=== PATIENT | male | born 1950 | race Caucasian/White ===

== ENCOUNTER 2017-12-16 06:12 | Day surgery (SDC) | payer MEDICARE ==
--- NOTE | 2017-12-13 21:50 | HP ---
CC: Dr. Preston Winkler * ADMISSION HISTORY AND PHYSICAL: DATE OF ADMISSION: 12/16/17 ATTENDING SURGEON: Dr. Julio Cesar Bradley * (LESLEE Daley, dictating). CHIEF COMPLAINT: Left inguinal hernia. HISTORY OF PRESENT ILLNESS: This is a 67-year-old generally healthy male, who approximately 5 weeks ago first noted a bulge in the left inguinal area. It had been associated with some mild discomfort particularly related to activity or positioning, though nothing to suggest incarceration or strangulation. He does have baseline BPH, but has not noticed any change in function. He was seen by his PCP and referred for evaluation with Dr. Bradley. He was seen in the office on 11/30/17 at which time, Dr. Bradley noted a moderately large left inguinal hernia. Dr. Bradley has discussed with him the indications for surgery, the risks, benefits, and alternatives as well as the methods for repair. The patient would like to proceed as scheduled with open repair of left inguinal hernia with mesh. PAST MEDICAL HISTORY: BPH, right bundle-branch block (seen and evaluated by Dr. Murillo in 2009 with an echocardiogram at that time, which was normal. He has had a more recent EKG which remains unchanged and he has been symptom free), hyperlipidemia. PAST SURGICAL HISTORY: Previous surgery is limited to dental extractions. CURRENT MEDICATIONS: 1. Flomax 0.4 mg once daily. 2. Atorvastatin 20 mg once daily. 3. Aspirin 325 mg once daily most days. He will hold his aspirin preoperatively as of today, his last dose being 12/12/17. 4. Lovaza 1 g 2 capsules b.i.d. 5. Turmeric Curcumin supplement 2 to 3 tablets once daily (when he remembers; he will hold this between now and surgery). ALLERGIES: Drug allergies, none known. FAMILY HISTORY: Negative for anesthesia problems, bleeding, or clotting disorders. SOCIAL HISTORY: The patient is a retired glass glazier. He is . His accompanies him today. He is a nonsmoker and drinks alcohol occasionally. REVIEW OF SYSTEMS: General: No recent constitutional symptoms or acute illnesses. His weight has been stable. HEENT: No problems reported. Cardiovascular: As noted above right bundle-branch block, unchanged. No history of chest pain, palpitations, hypertension, or heart murmur. Respiratory : No history of asthma, chronic cough, or shortness of breath. GI: No problems reported. Colonoscopy done in 2017 with removal of a tubular adenoma and recommended 5-year followup. : As above. No additions. Musculoskeletal : No problems reported. Endocrine: No diabetes or thyroid dysfunction. PHYSICAL EXAMINATION GENERAL: A well-nourished, well-developed male, in no acute distress. VITAL SIGNS: Height 70 inches, weight 169 pounds, blood pressure 90/58, pulse 66, and respirations 16. HEENT: Pupils equal, round, and reactive. EOMs intact. No conjunctival pallor. Oropharynx, teeth in good repair. No intraoral lesions. NECK: No lymphadenopathy, thyromegaly, or masses. LUNGS: Clear to auscultation. No rales or wheezes. HEART: Somewhat distant heart sounds, but otherwise regular rhythm with no murmur appreciated. ABDOMEN: Soft, nontender to palpation. No palpable masses or organomegaly with the exception of a left groin bulge notable most readily in the standing position. This is soft and reducible. No hernia noted on the right. GENITALIA: Otherwise normal. RECTAL: Not done. BACK: No spinous process or CVA tenderness. EXTREMITIES: No edema. NEUROLOGIC: Grossly intact. SKIN: Warm and dry. No suspicious rashes or lesions noted. IMPRESSION: Left inguinal hernia. PLAN: Open repair of left inguinal hernia with mesh. LESLEE DALEY [id number]/[facility] #: [id number] MTDChristopher
[~2017-12-16 06:12] MED LIST: Buffered Lidocaine 0.9% SYRIN* 5 ML/SYR SYRINGE INTRADERM ONE; Dexamethasone IV* 4 MG/ML 1 ML (4 MG) IV SLOW PU ONE; Famotidine IV* 10 MG/ML 2 ML (20 mg) IV ONE
[2017-12-16] MEDS ORDERED: Dexamethasone IV* 4 MG/ML 1 ML (4 MG) ONE (06:47)
[2017-12-16] MEDS ORDERED: Famotidine IV* 10 MG/ML 2 ML (20 mg) ONE (06:47)
[2017-12-16] MEDS ORDERED: ceFAZolin 2 GM PREMIX (*) 2 GM/50 ML BAG IVPB ONE (06:47)
[2017-12-16] MEDS ORDERED: Lidocaine 2% PF * 5 ML VIAL ONE (07:14)
[2017-12-16] MEDS ORDERED: Midazolam* 1 MG/ML 2 ML VIAL (2 MG) ONE (07:14)
[2017-12-16] MEDS ORDERED: Propofol* 10 MG/ML 20 ML BTL IV PUSH ONE (07:14)
[2017-12-16] MEDS ORDERED: fentaNYL* 50 MCG/ML 2 ML VIAL (100 MCG VIAL) ONE (07:14)
[2017-12-16] MEDS ORDERED: Lidocaine 1% MPF wEPI 200,000* 30 ML SDV ONE (07:15)
[2017-12-16] MEDS ORDERED: Bupivacaine 0.5% PF 10 ML VIAL INJ ONE (07:15)
[2017-12-16] MEDS ORDERED: HYDROcodone/ACETAMIN 5-325 MG* 1 TAB PO PRN (07:24)
[2017-12-16] MEDS ORDERED: Ketorolac INJ* 30 MG/ML 1 ML VIAL IV PRN (07:24)
[2017-12-16] MEDS ORDERED: Naloxone* 0.4 MG/ML 1 ML VIAL IV PRN (07:24)
[2017-12-16] MEDS ORDERED: fentaNYL* 50 MCG/ML 2 ML VIAL (100 MCG VIAL) IV PRN (07:24)
[2017-12-16] MEDS ORDERED: oxyCODONE/Acetamin 5/325 MG* TAB PO PRN (07:24)
[2017-12-16] MEDS ORDERED: Ondansetron INJ* 2 MG/ML VIAL IV PRN (07:24)
[2017-12-16 08:40] VITALS: BP 115/80
--- NOTE | 2017-12-16 13:43 | OP ---
CC: Dr. Julio Cesar Bradley; Dr. Winkler. OPERATIVE REPORT: DATE OF OPERATION: 12/16/17 DATE OF : 46 SURGEON: Julio Cesar Bradley MD ME[employer]ICE TEAM MEMBER: LESLEE Moon ANESTHESIOLOGIST: Dr. Thurman. ANESTHESIA: LMAC anesthesia. PRE-OP DIAGNOSIS: Left inguinal hernia. POST-OP DIAGNOSIS: Left inguinal hernia. OPERATIVE PROCEDURE: Open left inguinal hernia repair with mesh. DESCRIPTION OF PROCEDURE: The patient was supine in the operating room table after adequate intraven ous sedation, compression stocking, Peg Hugger warmer, and intravenous antibiotics. The abdomen was prepped with antiseptic and draped in a sterile fashion. Local infiltrative anesthesia was administ ered. Left inguinal incision was created and approximately 5 to 6 cm incision was created. Dissecti on carried down to the external oblique which was opened in the direction of this fibers. Cord struc tures were encircled with a [place] drain, tented upward, and indirect hernia sac was identified with in the cord structures. It was dissected free and reduced and a cone mesh plug was placed into the in ternal ring, sutured there with 2-0 Vicryl. A second piece of mesh was placed over the inguinal floo r, sutured to the tubercle. Tails were split, brought around the cord structures and tacked down lat erally. External oblique was closed over top with 2-0 Vicryl, Debra with 3-0 Vicryl, skin with 4-0 Prolene followed by a sterile dressing. He tolerated the procedure well and was awakened and brought to Recovery in good condition. No complications, no drains. No pathologic specimens. Sponge and i nstrument counts correct. Estimated blood loss 10 mL. [id number]/[facility] #: [id number]
== END 2017-12-16 10:46 | disposition home or self-care (01) ==
LOC: OR 06:12
PROVIDERS: ATTEND Surgery
DX: K40.90 Unilateral inguinal hernia, without obstruction or gangrene, not specified as recurrent (principal); I45.10 Unspecified right bundle-branch block; E78.5 Hyperlipidemia, unspecified; N40.0 Benign prostatic hyperplasia without lower urinary tract symptoms
CPT/HCPCS: C1781; J0690; J1100; J2001; J2250; J2704; J3010

== ENCOUNTER 2019-02-19 15:14 | Emergency (ER) | payer MEDICARE ==
[2019-02-19] MEDS ORDERED: Famotidine TAB* 20 MG PO ONE (15:22)
[2019-02-19] MEDS ORDERED: diPHENhydraMINE PO* 50 MG PO ONE (15:22)
[2019-02-19] MEDS ORDERED: predniSONE TAB* 20 MG PO ONE (15:23)
[2019-02-19 15:24] VITALS: BP 130/81
--- NOTE | 2019-02-19 15:28 | UC ---
Bite Injury/Animal HPI - HPI Summary HPI Summary: 68-year-old male comes in with a chief complaint of multiple bee stings. Just prior to arrival patient was stung multiple times on the head right neck left shoulder. Patient does feel little sweaty. No prior history of allergic reaction to bee stings. Patient reports he's not been stung this many times in the past. Denies any shortness of breath or difficulty swallowing. - History of Current Complaint Chief Complaint: UCSkin Stated Complaint: BEE STING Time Seen by Provider: 02/19/19 15:18 Pain Intensity: 0 - Allergies/Home Medications Allergies/Adverse Reactions: Allergies Allergy/AdvReac Type Severity Reaction Status Date / Time No Known Allergies Allergy Verified 02/19/19 15:24 PMH/Surg Hx/FS Hx/Imm Hx Previously Healthy: Yes - BPH Endocrine History: Dyslipidemia - Surgical History Surgical History: Yes Surgery Procedure, Year, and Place: hernia 2018 - Family History Known Family History: Positive: Non-Contributory - Social History Alcohol Use: Rare Substance Use Type: None Smoking Status (MU): Never Smoked Tobacco Review of Systems All Other Systems Reviewed And Are Negative: Yes Constitutional: Positive: Other - SEE HPI Skin: Positive: Other - SEE HPI Eyes: Positive: Negative ENT: Positive: Negative Respiratory: Positive: Negative Cardiovascular: Positive: Negative Gastrointestinal: Positive: Negative Motor: Positive: Negative Neurovascular: Positive: Negative Musculoskeletal: Positive: Negative Neurological: Positive: Negative Psychological: Positive: Negative Is Patient Immunocompromised?: No Physical Exam Triage Information Reviewed: Yes Appearance: No Pain Distress, Well-Nourished, Other: - Mildly diaphoretic. Awake alert appropriate normal voice no difficulty with breathing apparent on examination. Vital Signs: Initial Vital Signs Temp 96.7 F 02/19/19 15:19 Pulse 91 02/19/19 15:19 Resp 19 02/19/19 15:19 BP 130/81 02/19/19 15:19 Pulse Ox 99 02/19/19 15:19 Vital Signs Reviewed: Yes Eye Exam: Normal Eyes: Positive: Conjunctiva Clear ENT: Positive: Pharynx normal - Oral pharynx is open. Voice is normal. Neck: Positive: Supple Respiratory: Positive: Lungs clear, Normal breath sounds, No respiratory distress Cardiovascular: Positive: RRR Musculoskeletal: Positive: Strength Intact, ROM Intact Neurological: Positive: Alert, Muscle Tone Normal Psychological: Positive: Age Appropriate Behavior Skin: Positive: Other - Patient has multiple bee stings on his arms right side of his neck left shoulder and on top of his head. A total of 4 stingers were removed from the various sites. Bite Injury Course/Dx - Course Course Of Treatment: Patient was given Benadryl 50 mg by mouth, Pepcid 40 mg by mouth and prednisone 60 mg by mouth in clinic. Patient did not have any shortness of breath difficulty swallowing. No generalized allergic reaction in the clinic. - Differential Dx/Diagnosis Provider Diagnosis: Bee sting Discharge ED - Sign-Out/Discharge Documenting (check all that apply): Patient Departure All imaging exams completed and their final reports reviewed: No Studies - Discharge Plan Condition: Stable Disposition: HOME Prescriptions: Famotidine TAB* [Pepcid 20 MG TAB*] 20 mg PO BID PRN #8 tab PRN Reason: Allergy Symptoms predniSONE TAB* [Deltasone 20 MG TAB*] 40 mg PO DAILY PRN #8 tab PRN Reason: Allergy Symptoms Patient Education Materials: Insect Bite or Sting (ED) Referrals: Faye Hough MD [Primary Care Provider] - Additional Instructions: FOLLOW UP WITH YOUR DOCTOR IF NOT COMPLETELY IMPROVED. GO TO THE EMERGENCY DEPARTMENT IF YOUR CONDITION WORSENS; SHORTNESS OF BREATH, DIFFICULTY SWALLOWING, YOU FEEL ILL OR ANY QUESTIONS OR CONCERNS. - Billing Disposition and Condition Condition: STABLE Disposition: Home
== END 2019-02-19 16:45 | disposition home or self-care (01) ==
LOC: UCEAST 15:14
DX: T63.441A Toxic effect of venom of bees, accidental (unintentional), initial encounter (principal); Y92.9 Unspecified place or not applicable; E78.5 Hyperlipidemia, unspecified
CPT/HCPCS: 99212; A9270-GY; G0463; J7512

== ENCOUNTER 2019-07-17 14:57 | Emergency (ER) | payer MEDICARE ==
[2019-07-17 16:01] VITALS: BP 121/66
--- NOTE | 2019-07-17 17:15 | UC ---
Ear Complaint HPI - HPI Summary HPI Summary: 69-year-old male presents with complaints of cerumen impaction to his right ear. States he was supposed to have a hearing test today to be evaluated for hearing aid in the joist setter told him that the right ear canal was impacted with cerumen. Denies fever, chills, ear pain, ear drainage, vertigo, tinnitus, or URI symptoms. - History of Current Complaint Chief Complaint: UCEar Stated Complaint: PLUGGED EAR Time Seen by Provider: 07/17/19 16:51 Hx Obtained From: Patient Pain Intensity: 0 - Allergies/Home Medications Allergies/Adverse Reactions: Allergies Allergy/AdvReac Type Severity Reaction Status Date / Time No Known Allergies Allergy Verified 07/17/19 16:01 PMH/Surg Hx/FS Hx/Imm Hx Endocrine History: Dyslipidemia GI/ History: Other - BPH - Surgical History Surgical History: Yes Surgery Procedure, Year, and Place: hernia 2018 - Family History Known Family History: Positive: Non-Contributory - Social History Occupation: Employed Full-time Lives: With Family Alcohol Use: Rare Substance Use Type: None Smoking Status (MU): Never Smoked Tobacco Review of Systems All Other Systems Reviewed And Are Negative: Yes Constitutional: Negative: Fever, Chills Eyes: Negative: Drainage, Eye Redness ENT: Positive: Other - See HPI. Negative: Sore Throat, Ear Ache, Nasal Discharge, Sinus Congestion, Sinus Pain/Tenderness Respiratory: Positive: Negative Cardiovascular: Positive: Negative Gastrointestinal: Positive: Negative Genitourinary: Positive: Negative Musculoskeletal: Positive: Negative Neurological: Positive: Negative Is Patient Immunocompromised?: No Physical Exam - Summary Physical Exam Summary: GENERAL APPEARANCE: Well developed, well nourished, alert and cooperative, and appears to be in no acute distress. EYES: Conjunctiva clear. No drainage. EARS: Left external auditory canal clear, left TM opaque with good cone of light. Right external auditory canal with cerumen impaction. TM no visualized. NOSE: No nasal discharge. THROAT: Pharynx normal. No tonsilar inflammation, swelling, exudate, or lesions. Uvula midline. NECK: Neck supple, non-tender without lymphadenopathy. CARDIAC: Normal S1 and S2. No S3, S4 or murmurs. Rhythm is regular. There is no peripheral edema, cyanosis or pallor. Extremities are warm and well perfused. Capillary refill is less than 2 seconds. Peripheral pulses intact. LUNGS: Clear to auscultation without rales, rhonchi, wheezing or diminished breath sounds. ABDOMEN: Positive bowel sounds. Soft, nondistended, nontender. No guarding or rebound. No masses or hepatosplenomegally. MUSKULOSKELETAL: ROM intact to all extremities. No joint erythema or tenderness. Normal muscular development. Normal gait. SKIN: Skin normal color, texture and turgor with no lesions or eruptions. Triage Information Reviewed: Yes Vital Signs: Initial Vital Signs Temp 97.4 F 07/17/19 15:58 Pulse 55 07/17/19 15:58 Resp 16 07/17/19 15:58 BP 121/66 07/17/19 15:58 Pulse Ox 100 07/17/19 15:58 Vital Signs Reviewed: Yes Ear Complaint Course/Dx - Course Course Of Treatment: 69-year-old male presents with complaints of cerumen impaction to his right ear. States he was supposed to have a hearing test today to be evaluated for hearing aid in the joist setter told him that the right ear canal was impacted with cerumen. Denies fever, chills, ear pain, ear drainage, vertigo, tinnitus, or URI symptoms. Afebrile. Vital signs stable. Patient's left external auditory canal was clear, left TM opaque with good cone of light, the right external auditory canal with cerumen impaction, right TM not visualized, and otherwise unremarkable exam. These cerumen impaction in the right external auditory canal was irrigated by the RN and a large amount of hard cerumen was removed. Post irrigation a small amount of cerumen remained in the base of the right external auditory canal however TM was visualized, intact, opaque, with a good cone of light. Patient is to follow-up with his primary care provider as needed. Anticipatory guidance and warning symptoms were reviewed with the patient. Verbalizes understanding and agrees with plan of care. - Differential Dx/Diagnosis Differential Diagnosis/HQI/PQRI: Cerumen Impaction, Otitis Externa, Otitis Media Provider Diagnosis: Impacted cerumen, right ear Discharge ED - Sign-Out/Discharge Documenting (check all that apply): Patient Departure All imaging exams completed and their final reports reviewed: No Studies - Discharge Plan Condition: Stable Disposition: HOME Patient Education Materials: Cerumen Impaction (ED) Referrals: Amador Murillo NP [Primary Care Provider] - If Needed Additional Instructions: The ear wax in your right ear was successfully removed. Follow up with you primary care provider as needed. Seek immediate medical attention if you develop fever greater than 100.5 F, have severe ear pain, sudden hearing loss, drainage or blood from the ear, persistent dizziness, or any worsening of symptoms. - Billing Disposition and Condition Condition: STABLE Disposition: Home
== END 2019-07-17 17:55 | disposition home or self-care (01) ==
LOC: UCEAST 14:57
DX: H61.21 Impacted cerumen, right ear (principal)
CPT/HCPCS: 69210; 99212; 99213; G0463

== ENCOUNTER 2023-12-27 11:00 | Observation (INO) ==
[~2023-12-27 11:00] MED LIST changes: -Buffered Lidocaine 0.9% SYRIN* 5 ML/SYR SYRINGE INTRADERM ONE; -Dexamethasone IV* 4 MG/ML 1 ML (4 MG) IV SLOW PU ONE; -Famotidine IV* 10 MG/ML 2 ML (20 mg) IV ONE; +Naloxone 0.4 mg VIAL 0.4 mg/ml 1 ml VIAL IV PRN; +Ondansetron 4 mg VIAL 2 MG/ML 2 ml VIAL IV PRN; +fentaNYL 100 mcg/2 ml 50 MCG/ML VIAL IV PRN
[2023-12-27] MEDS ORDERED: Propofol 10 MG/ML 20 ML BTL ONE (11:13)
[2023-12-27] MEDS ORDERED: fentaNYL 100 mcg/2 ml 50 MCG/ML VIAL ONE (11:13)
[2023-12-27] MEDS ORDERED: Lidocaine 2% PF 5 ML VIAL ONE (11:13)
[2023-12-27] MEDS: Lactated Ringers 1000 ml BAG 1,000 ML IV SCH (11:17)
[2023-12-27] MEDS: Buffered Lidocaine 1% SYRIN 1 ml INTRADERM ONE (11:17)
[2023-12-27] MEDS ORDERED: Ondansetron 4 mg VIAL 2 MG/ML 2 ml VIAL IV PRN (11:48)
[2023-12-27 12:01] LABS: Rapid COVID-19 Molecular Undetected (Undetected)
[2023-12-27] MEDS ORDERED: Dexamethasone IV 4 MG/ML VIAL 1 ml VIAL ONE (12:29)
[2023-12-27] MEDS ORDERED: Ondansetron 4 mg VIAL 2 MG/ML 2 ml VIAL ONE (12:29)
[2023-12-27] MEDS ORDERED: Gentamicin ADULT 40 MG/ML VIAL (2 ML VIAL = 80 MG) ONE (12:38)
[2023-12-27] MEDS ORDERED: Ampicillin IV 1 GM VIAL ONE (12:38)
[2023-12-27] MEDS: Gentamicin ADULT 340 MG in NS 0.9% 100 ml BAG 100 ML IVPB ONE (15:39)
[2023-12-27] MEDS: Ampicillin ADVAN 2 GM in NS 0.9% 100 ML 100 ML IVPB ONE (15:39)
[2023-12-27] MEDS: NS 0.9% 1,000 ML IV SCH (15:41)
[2023-12-27] MEDS: NS 0.9% 1000 ml BAG 1,000 ML IV SCH (15:45)
[2023-12-27] MEDS: Neomycin/Polym/Bacit TOP OINT 15 GM TOPICAL SCH (15:50)
[2023-12-27] MEDS: Magnesium Hydroxide LIQ 30 ML UDC PO SCH (23:08)
[2023-12-28 05:35] VITALS: BP 100/54
== END 2023-12-28 09:05 | disposition home or self-care (01) ==
LOC: OR 11:00 → SSU 11:00
PROVIDERS: ADMIT Urology; ATTEND Urology